=== PATIENT | female | born 1950 | race Caucasian/White ===

== ENCOUNTER 2016-09-13 12:53 | Outpatient (CLI) | payer OTHER ==
--- NOTE | 2016-09-13 13:17 | DIAGNOSTIC IMAGING REPORT ---
PROCEDURE: XR HIP 2VW W W/O AP PELVIS-LT INDICATION: L HIP PX TECHNIQUE: AP view of the pelvis and hips with lateral view of the left hip. COMPARISON: None. FINDINGS: The HIP: Osseous structures and joint spaces are normal. PELVIS: Osseous pelvis is normal. IMPRESSION: 1. Negative pelvis and left hip.
== END 2016-09-13 23:00 ==
LOC: XR SRH 12:53
DX: M25.552 Pain in left hip (principal)